=== PATIENT | female | born 1970 ===

== ENCOUNTER → 2018-08-08 | Emergency (ER) | payer OTHER ==
[~2018-08-08] VITALS: Ht 157.5 cm; Wt 80.7 kg
[~2018-08-08] MED LIST: DIAZEPAM10 MG PO; FORTAMET500 MG PO; NEURONTIN300 MG PO; NORFLEX100MG PO; TRICOR145 MG PO; ULTRAM50 MG PO
== END | disposition home or self-care (01) ==
LOC: ER 14:22
DX: M54.42 Lumbago with sciatica, left side (principal)